=== PATIENT | female | born 1965 | race Caucasian/White ===

== ENCOUNTER 2023-08-30 09:34 | Outpatient (CLI) | payer OTHER, SELFPAY ==
[2023-08-30 19:19] LABS: Hemoglobin 9.9 g/dL (12.0-15.0); Mean Corpuscular HGB Conc 31.9 g/dl (32-36); Mean Corpuscular Hemoglobin 32.2 pg (26-34); Mean Platelet Volume 10.7 fl (7.4-10.4); Platelet Count Result 169 k/mm3 (150-375); Red Blood Count 3.07 M/mm3 (4.2-5.4); Red Cell Distribution Width 14.9 % (11.5-14.5); White Blood Count 4.7 K/mm3 (4.5-10.0)
[2023-08-30 21:29] LABS: Alanine Aminotransferase 18 U/L (6-35); Albumin Level 3.8 g/dL (3.5-5.1); Alkaline Phosphatase 163 U/L (38-126); Anion Gap 8 mmol/L (8-16); Aspartate Amino Transferase 40 U/L (14-36); Bilirubin,Total 0.7 mg/dL (0.2-1.3); Blood Urea Nitrogen 33 mg/dL (7-17); Calcium 8.9 mg/dL (8.4-10.2); Carbon Dioxide 30 mmol/L (22-30); Chloride 100 mmol/L (98-107); Cholesterol 177 mg/dL (0-200); Estimated Glomerular Filt Rate 23; Glucose 130 mg/dL (65-110); HDL Direct 78 mg/dL; Potassium 4.3 mmol/L (3.4-5.0); Sodium 138 mmol/L (137-145); Triglycerides 57 mg/dL (<150)
[2023-08-30 21:45] LABS: LDL Cholesterol Direct 66 mg/dL
[2023-08-30 21:46] LABS: Vitamin D 25 Hydroxy < 12.8 ng/mL
[2023-08-30 22:11] LABS: Hemoglobin A1C 5.7 % (<5.7)
== END 2023-08-30 09:35 | disposition home or self-care (01) ==
LOC: ANHGOSHLAB 09:36
PROVIDERS: PCP Family Medicine; Visit Provider Nurse Practitioner
DX: E78.5 Hyperlipidemia, unspecified (principal); E55.9 Vitamin D deficiency, unspecified; E11.9 Type 2 diabetes mellitus without complications; D50.9 Iron deficiency anemia, unspecified; Z00.00 Encounter for general adult medical examination without abnormal findings
CPT/HCPCS: 36415; 80053; 80061; 82306; 83036; 84443; 85027